=== PATIENT | female | born 1955 | race Caucasian/White ===

== ENCOUNTER 2020-10-10 18:49 | Day surgery (SDCO) | payer OTHER ==
[2020-10-10 22:57] LABS: BASOPHIL 0.4 % (0-2); EOSINOPHIL 0.1 % (0-5); HCT 43.1 % (37.0-47.0); HGB 15.6 g/dl (12.5-16.0); MCH 31.1 pg (25.0-31.0); MCHC 36.2 g/dL (32.0-36.0); MONOCYTE 6.7 % (0-12); MPV 10.5 fL (6.0-9.5); NEUTROPHIL 74.5 % (41-80); NRBC 0; PLT 299 K/uL (150-400); RBC 5.01 M/uL (4.20-5.40); WBC 6.8 K/uL (4.0-10.5)
[2020-10-10 23:09] LABS: ALBUMIN 4.6 g/dL (3.4-5.0); BILIRUBIN - TOTAL 0.7 mg/dL (0.2-1.0); BUN/CREAT RATIO (CALC) 20.8 RATIO; CREATININE 0.53 mg/dL (0.51-0.95); GLOBULIN (CALCULATION) 4.1 g/dL; POTASSIUM 3.7 mmol/L (3.5-5.1); TOTAL PROTEIN 8.7 g/dL (6.4-8.2)
[2020-10-10 23:47] LABS: BILIRUBIN NEGATIVE (NEGATIVE); BLOOD NEGATIVE Ery/uL (NEGATIVE); CLARITY CLEAR (CLEAR); COLOR YELLOW (YELLOW); GLUCOSE (U) NORMAL (NORMAL); LEUKOCYTES NEGATIVE Leu/uL (NEGATIVE); NITRITE NEGATIVE (NEGATIVE); PROTEIN NEGATIVE (NEGATIVE); SPECIFIC GRAVITY 1.015 (1.001-1.030); UROBILINOGEN 0.2 mg/dL (0.2-1.0)
--- NOTE | 2020-10-11 06:37 | NUR ---
PATIENT ARRIVED TO FLOOR VIA STRECHER FROM ER. AT BEDSIDE. ALERT AND ORIENTED BED LOCKED IN LOW POSITION. CALL LIGHT IN REACH.
[2020-10-11] MEDS ORDERED: GABAPENTIN600 MG PO (06:41)
[2020-10-11] MEDS ORDERED: CELEXA20 MG PO (06:42)
[2020-10-11 07:18] LABS: CORONAVIRUS 2019 SARS-COV-2 NEGATIVE (NEGATIVE); INFLUENZA A NAA NEGATIVE (NEGATIVE)
--- NOTE | 2020-10-11 16:18 | NUR ---
10/11 Ms. Dacosta lives with her spouse. She was independent in the home and community prior to admission. No discharge needs are anticipated.
[2020-10-12 06:32] LABS: BASOPHIL 1.1 % (0-2); EOSINOPHIL 2.8 % (0-5); HCT 43.9 % (37.0-47.0); HGB 15.1 g/dl (12.5-16.0); MCH 30.1 pg (25.0-31.0); MCHC 34.4 g/dL (32.0-36.0); MCV 87.6 fL (78.0-100.0); MONOCYTE 11.2 % (0-12); MPV 10.1 fL (6.0-9.5); NEUTROPHIL 52.7 % (41-80); NRBC 0; PLT 260 K/uL (150-400); RBC 5.01 M/uL (4.20-5.40); RDW 12.9 % (11.5-14.0); WBC 4.7 K/uL (4.0-10.5)
[2020-10-12 06:42] LABS: INR 1.21 (0.9-1.2); PROTHROMBIN TIME 14.5 SECONDS (11.4-13.6)
[2020-10-12 07:01] LABS: ALBUMIN 4.1 g/dL (3.4-5.0); BILIRUBIN - TOTAL 0.7 mg/dL (0.2-1.0); BUN/CREAT RATIO (CALC) 18.2 RATIO; CREATININE 0.55 mg/dL (0.51-0.95); GLOBULIN (CALCULATION) 3.8 g/dL; POTASSIUM 3.1 mmol/L (3.5-5.1); TOTAL PROTEIN 7.9 g/dL (6.4-8.2)
[2020-10-12] MEDS ORDERED: ZOFRAN4 M1 PO (14:09)
[2020-10-12] MEDS ORDERED: LIPITOR40 MG PO (14:09)
[2020-10-12] MEDS ORDERED: PROTONIX 40MG T40 MG PO (14:09)
[2020-10-12] MEDS ORDERED: ASPIRIN EC81 MG PO (14:09)
--- NOTE | 2020-10-12 15:36 | NUR ---
PT DC'd AND TAKEN TO MAIN ENTRANCE OF FACILITY VIA WHEELCHAIR W/ NO ISSUES @ 1552. VS STABLE/NO PAIN/DISTRESS; PICKED UP PT VIA PERSONAL VEHICLE FOR TRANSPORT HOME.
== END 2020-10-12 15:51 | disposition home or self-care (01) ==
LOC: FER 18:49 → FTCU 10-11 05:24
PROVIDERS: Emergency Medicine; Nurse Practitioner Adult Health; ADMIT Internal Medicine
DX: R51.9 Headache, unspecified (principal); R11.2 Nausea with vomiting, unspecified; R19.7 Diarrhea, unspecified; F41.9 Anxiety disorder, unspecified; G89.29 Other chronic pain; M54.9 Dorsalgia, unspecified; Z20.822 Contact with and (suspected) exposure to COVID-19; Z86.59 Personal history of other mental and behavioral disorders; Z90.49 Acquired absence of other specified parts of digestive tract; Z98.1 Arthrodesis status
CPT/HCPCS: 36415; 70450; 70544; 70548; 70551; 80053; 80061; 81003; 83690; 83735; 84443; 84484; 85025; 85610; 92523; 93005; 97161; A9579; G0378; J0780; J1200; J1650; J1885; J2060; J2405; J2550; J7030; Q9967; U0002